=== PATIENT | male | born 1995 | race Caucasian/White ===

== ENCOUNTER 2018-06-24 12:11 | Day surgery (SDC) | payer OTHER ==
[2018-06-24] MEDS: DEXAMETHASONE 2 MG TAB PO (13:23)
[2018-06-24] MEDS: GABAPENTIN 300 MG CAP PO (13:23)
[2018-06-24] MEDS: CEFAZOLIN 2 GM/50 ML (PMX) 50 ML IVPB (15:46)
[2018-06-24] MEDS ORDERED: FENTAnyl 50 MCG/ML VIAL (15:48)
[2018-06-24] MEDS ORDERED: MIDAZOLAM 1 MG/ML 2 ML INJ (15:48)
[2018-06-24] MEDS: LACTATED RINGER'S 1,000 ML IV* ×2 (15:53→16:55)
[2018-06-24] MEDS: BUPIVACAINE 0.5% (SDV) 30 ML, morphine SULFATE (PF) 8 MG, EPINEPHrine 0.3 MG, KETOROLAC... IRR (15:53)
[2018-06-24] MEDS ORDERED: ETOMIDATE 20 MG INJ (16:38)
[2018-06-24] MEDS ORDERED: LIDOCAINE 2% (SDV) 5 ML INJ (16:38)
[2018-06-24] MEDS ORDERED: ONDANSETRON 4 MG INJ (16:41)
[2018-06-24] MEDS ORDERED: PROPOFOL 20 ML (16:41)
[2018-06-24] MEDS ORDERED: CEFAZOLIN 1 GM INJ (16:41)
[2018-06-24] MEDS: HYDROmorphONE 1 MG/5 ML IV SYRINGE IV ×3 (17:22→17:37)
[2018-06-24] MEDS: ONDANSETRON 4 MG INJ IV (17:23)
[2018-06-24] MEDS ORDERED: DIPHENHYDRAMINE 50 MG INJ IV (17:30)
[2018-06-24] MEDS ORDERED: METOCLOPRAMIDE 10 MG INJ IV (17:30)
[2018-06-24] MEDS ORDERED: MEPERIDINE 25 MG INJ IV (17:30)
[2018-06-24] MEDS: FENTAnyl 50 MCG/ML VIAL IV (17:32)
== END 2018-06-24 18:21 | disposition home or self-care (01) ==
LOC: SDS 12:11
DX: S73.101A Unspecified sprain of right hip, initial encounter (principal); M13.851 Other specified arthritis, right hip; M24.051 Loose body in right hip; X58.XXXA Exposure to other specified factors, initial encounter; Y93.89 Activity, other specified; Y92.89 Other specified places as the place of occurrence of the external cause; Y99.8 Other external cause status
CPT/HCPCS: 29916; 73501; 73530